=== PATIENT | female | born 1975 | race Caucasian/White ===

== ENCOUNTER → 2018-02-19 | Outpatient (CLI) | payer BC ==
[~2018-02-19] MED LIST: NO HOME MEDICATIONS
== END ==
LOC: COL.RAD 11:24
DX: N83.201 Unspecified ovarian cyst, right side (principal)

== ENCOUNTER → 2018-07-30 | Outpatient (CLI) | payer BC | LOC: MC.RAD 08:14 | DX: Z12.31 Encounter for screening mammogram for malignant neoplasm of breast (principal) ==

== ENCOUNTER → 2021-10-30 | Outpatient (CLI) | payer BC | LOC: MC.RAD 13:53 | DX: Z12.31 Encounter for screening mammogram for malignant neoplasm of breast (principal) ==

== ENCOUNTER → 2022-11-05 | Outpatient (CLI) | payer BC | LOC: COL.RAD 13:37 | DX: E06.3 Autoimmune thyroiditis (principal) ==